=== PATIENT | female | born 1955 | race Two or more races ===

== ENCOUNTER 2017-04-27 07:25 | Outpatient (CLI) | payer OTHER ==
[~2017-04-27 07:25] MED LIST: APLENZIN174 MG; CIPRO500 MG PO; FENOFIBRATE; FLAGYL500MG PO; LEXAPRO20 MG; VOLTAREN100 GM TD
[2017-04-29] MEDS ORDERED: VOLTAREN100 GM TD (10:47)
== END 2017-04-27 13:52 | disposition home or self-care (01) ==
LOC: SONOGRAMA 07:25 → MAMO-SONO 07:45 → SONOGRAMA 13:52
DX: K82.4 Cholesterolosis of gallbladder (principal); E04.8 Other specified nontoxic goiter

== ENCOUNTER → 2017-05-05 | Outpatient (CLI) | payer OTHER | END | disposition home or self-care (01) | LOC: LAB 08:17 | DX: E24.0 Pituitary-dependent Cushing's disease (principal) ==

== ENCOUNTER → 2017-07-27 | Outpatient (CLI) | payer OTHER ==
[~2017-07-27] MED LIST changes: +CLARINEX-D 121 EACH PO
== END | disposition home or self-care (01) ==
LOC: LAB 07:01
DX: Z11.4 Encounter for screening for human immunodeficiency virus [HIV] (principal); Z12.12 Encounter for screening for malignant neoplasm of rectum; Z13.29 Encounter for screening for other suspected endocrine disorder; Z13.220 Encounter for screening for lipoid disorders; Z13.1 Encounter for screening for diabetes mellitus

== ENCOUNTER → 2019-01-31 | Outpatient (CLI) | payer OTHER | END | disposition home or self-care (01) | LOC: RX STUDY 08:45 → MAMO-SONO 09:15 | DX: Z12.31 Encounter for screening mammogram for malignant neoplasm of breast (principal); N60.11 Diffuse cystic mastopathy of right breast; N60.12 Diffuse cystic mastopathy of left breast ==

== ENCOUNTER 2019-09-06 09:45 | Emergency (ER) | payer OTHER ==
[~2019-09-06] VITALS: Ht 157.5 cm; Wt 62.6 kg
[2019-09-06] MEDS ORDERED: LIPITOR20 MG (09:51)
== END 2019-09-06 18:29 | disposition home or self-care (01) ==
LOC: ER 09:45
DX: K57.30 Diverticulosis of large intestine without perforation or abscess without bleeding (principal)

== ENCOUNTER 2020-01-27 08:54 | Outpatient (CLI) | payer OTHER | END 2020-01-27 08:57 | disposition home or self-care (01) | LOC: MAMO-SONO 08:54 → NUCLEAR 13:00 | PROVIDERS: ATTEND Obstetrics & Gynecology | DX: Z12.31 Encounter for screening mammogram for malignant neoplasm of breast (principal); N60.11 Diffuse cystic mastopathy of right breast; N60.12 Diffuse cystic mastopathy of left breast ==

== ENCOUNTER → 2020-01-27 | Outpatient (CLI) | payer OTHER ==
[~2020-01-27] MED LIST changes: +LIPITOR20 MG
== END | disposition home or self-care (01) ==
LOC: NUCLEAR 11:43
PROVIDERS: ATTEND Obstetrics & Gynecology
DX: M81.0 Age-related osteoporosis without current pathological fracture (principal)

== ENCOUNTER 2021-03-13 11:57 | Outpatient (CLI) | payer OTHER | END 2021-03-13 12:06 | disposition home or self-care (01) | LOC: MAMO-SONO 11:57 | PROVIDERS: ATTEND Specialist | DX: R92.1 Mammographic calcification found on diagnostic imaging of breast (principal); N60.11 Diffuse cystic mastopathy of right breast; N60.12 Diffuse cystic mastopathy of left breast; Z12.31 Encounter for screening mammogram for malignant neoplasm of breast ==

== ENCOUNTER 2021-03-14 09:39 | Outpatient (CLI) | payer OTHER | END 2021-03-14 09:44 | disposition home or self-care (01) | LOC: SONOGRAMA 09:39 | PROVIDERS: ATTEND Obstetrics & Gynecology | DX: M48.02 Spinal stenosis, cervical region (principal); N84.0 Polyp of corpus uteri ==

== ENCOUNTER 2021-03-20 09:11 | Outpatient (CLI) | payer OTHER | END 2021-03-20 09:19 | disposition home or self-care (01) | LOC: LAB 09:11 | PROVIDERS: ATTEND Obstetrics & Gynecology | DX: N95.8 Other specified menopausal and perimenopausal disorders (principal); E78.49 Other hyperlipidemia; R97.8 Other abnormal tumor markers ==

== ENCOUNTER 2021-05-28 10:25 | Day surgery (SDC) | payer OTHER ==
[~2021-05-28 10:25] MED LIST changes: +FENOFIBRATE160 MG PO
[2021-05-28] MEDS ORDERED: IBUPROFEN600 MG PO (15:48)
== END 2021-05-28 18:15 | disposition home or self-care (01) ==
LOC: CIR.AMB 10:25
PROVIDERS: ATTEND Obstetrics & Gynecology
DX: N84.0 Polyp of corpus uteri (principal); E78.5 Hyperlipidemia, unspecified; F41.9 Anxiety disorder, unspecified; K76.9 Liver disease, unspecified